=== PATIENT | male | born 1930 | race Caucasian/White ===

== ENCOUNTER 2016-07-06 18:07 | Inpatient (IN) | payer MEDICARE, MEDICAID ==
[~2016-07-06] VITALS: Ht 182.9 cm; Wt 95.6 kg
[2016-07-06] VITALS (209 sets, daily range): BP systolic 70; BP diastolic 50; PULSE 101; TEMP 97.3; O2SAT 85–100
[~2016-07-06 18:07] MED LIST changes: -00186-0370-20 IH; -ASPIRIN 81M81 MG/TA2 PO; -DULCOLAX S10 MG/SUPP RC; -FOLIC ACID 11 MG/TA1 PO; -GOOD SENSE400 MG/5 M PO; -HALLS MM; -HCTZ 25MG TAB25 MG PO; -IPRATROPIUM BROM3 M1 IH; -JANUVIA 100MG100 MG PO; -KLONOPIN 0.5MG0.5 MG PO; -LAC-HYDRIN121 TP; -MINERAL OIL 1 ML1 ML PO; -MIRALAX PA17 GM/Dose PO; -MUCINEX 60600 MG/TA1 PO; -MULTI-VITAMIN W1 TA2 PO; -NATURE'S BLEND100 M2 PO; -OCEAN NASAL SPR45 ML NS; -PRAVACHOL10 MG PO; -PRINIVIL2.5 MG PO; -PROSCAR 5MG5 MG PO; -SINEMET 25/101 UDTAB PO; -SYNTHROID0.112 MG/T PO; -TYLENOL 500MG500 MG PO; -[UNRECOGNIZED DRUG - OTHER]
[2016-07-06 20:24] LABS: HEMATOCRIT 40.2 % (42.0-52.0); HEMOGLOBIN 13.9 g/dl (13.5-18.0); MEAN CELL VOLUME 89 fl (80.0-100.0); MEAN CORPUSCULAR HEMOGLOBIN 31 pg (27.0-31.0); MEAN CORPUSCULAR HGB CONC 35 g/dl (33.0-37.0); MEAN PLATELET VOLUME 10.5 fl (7.4-10.4); PLATELET COUNT 207 K/mm3 (130-400); RED BLOOD COUNT 4.53 M/mm3 (4.20-5.60); REDCELL DISTRIBUTION WIDTH-CV 13.5 % (11.5-14.5)
[2016-07-06 20:27] LABS: ADD PATHOLOGY DIFF REVIEW NO; WHITE BLOOD COUNT 26.1 K/mm3 (4.8-10.8)
[2016-07-06 20:30] LABS: ADJUSTED CALCIUM 8.5 mg/dL (8.4-10.2); ALANINE AMINOTRANSFERASE 16 U/L (21-72); ALBUMIN 3.7 gm/dL (3.5-5.0); ALKALINE PHOSPHATASE 59 U/L (50-136); ANION GAP 12 mmol/L (7-16); BILIRUBIN,TOTAL 1.9 mg/dL (0.0-1.0); BLOOD UREA NITROGEN 19 mg/dL (9-20); CALCIUM 8.3 mg/dL (8.4-10.2); CARBON DIOXIDE 26 mmol/L (22-30); CHLORIDE 97 mmol/L (98-107); CREATININE, serum 1.27 mg/dL (0.66-1.25); POTASSIUM 4.2 mmol/L (3.4-5.0); SODIUM 135 mmol/L (137-145); TOTAL PROTEIN 6.8 gm/dL (6.4-8.2)
[2016-07-06 20:37] LABS: BAND 4 % (0-10); NEUTROPHILS 88 % (42.0-75.2); ROULEAUX 1+; TOTAL CELLS COUNTED 100
[2016-07-06 20:38] LABS: ANISOCYTOSIS 1+; STOMATOCYTE 1+
[2016-07-06 20:44] LABS: GLUCOSE 179 mg/dL (74-106); SALICYLATE < 1.0 mg/dL
[2016-07-06 20:46] LABS: ARTERIAL BLD GAS O2 SATURATION 92.1 % (92-100); ARTERIAL BLD GAS TCO2 CT 28.1; ARTERIAL BLOOD GAS HCO3 26.2 meq/L (22-26); ARTERIAL BLOOD GAS PHT 7.27 C (7.35-7.45); ARTERIAL BLOOD GAS PO2 72.3 mmHg (80-100); ARTERIAL BLOOD GAS PO2T 72.3 (80-100); ARTERIAL BLOOD GAS pH 7.27 (7.35-7.45); OXYHEMOGLOBIN 90.9 %
[2016-07-06 20:47] LABS: ALLEN TEST YES; ALLENS TEST RESULT PASS; ATS? YES
[2016-07-06 21:16] LABS: INR 1.2 (0.8-3.0); PROTHROMBIN TIME 13.6 SECONDS (9.7-12.8)
[2016-07-06 21:19] LABS: PARTIAL THROMBOPLASTIN TIME 38.9 SECONDS (26.0-37.0)
[2016-07-06 21:28] LABS: VENOUS BLOOD GAS BE -3.4 (-4-4)
[2016-07-06 21:29] LABS: VENOUS BLOOD GAS SAO2 74.5 % (60-80); VENOUS BLOOD GAS SITE CENTRAL LINE
[2016-07-07] VITALS (974 sets, daily range): BP systolic 95–118; BP diastolic 62–92; PULSE 91–105; TEMP 97.5–98.4; O2SAT 59–100
[2016-07-07] MEDS ORDERED: TYLENOL 500MG500 MG PO (00:04)
[2016-07-07] MEDS ORDERED: IPRATROPIUM BROM3 M1 IH (00:06)
[2016-07-07] MEDS ORDERED: LAC-HYDRIN121 TP (00:08)
[2016-07-07] MEDS ORDERED: ASPIRIN 81M81 MG/TA2 PO (00:08)
[2016-07-07] MEDS ORDERED: DULCOLAX S10 MG/SUPP RC (00:09)
[2016-07-07] MEDS ORDERED: KLONOPIN 0.5MG0.5 MG PO (00:11)
[2016-07-07] MEDS ORDERED: SINEMET 25/101 UDTAB PO (00:11)
[2016-07-07] MEDS ORDERED: [UNRECOGNIZED DRUG - OTHER] (00:14)
[2016-07-07 00:15] LABS: GRANULAR CAST >12 /lpf; HYALINE CAST >12 /lpf; PH 5 (5-8); SQUAMOUS EPITHELIAL 0-2 /hpf; URINE APPEARANCE Cloudy; URINE BACTERIA Rare /hpf; URINE BILIRUBIN Negative (NEGATIVE); URINE BLOOD 2+ (NEGATIVE); URINE COLOR Amber; URINE GLUCOSE 1+ (NEGATIVE); URINE KETONE Trace (NEGATIVE); URINE RBC >50 /hpf; URINE UROBILINOGEN Negative (NEGATIVE); URINE WBC 20-50 /hpf
[2016-07-07] MEDS ORDERED: FOLIC ACID 11 MG/TA1 PO (00:15)
[2016-07-07] MEDS ORDERED: PROSCAR 5MG5 MG PO (00:15)
[2016-07-07] MEDS ORDERED: MUCINEX 60600 MG/TA1 PO (00:16)
[2016-07-07] MEDS ORDERED: JANUVIA 100MG100 MG PO (00:17)
[2016-07-07] MEDS ORDERED: HCTZ 25MG TAB25 MG PO (00:17)
[2016-07-07] MEDS ORDERED: SYNTHROID0.112 MG/T PO (00:18)
[2016-07-07] MEDS ORDERED: PRINIVIL2.5 MG PO (00:19)
[2016-07-07] MEDS ORDERED: GOOD SENSE400 MG/5 M PO (00:20)
[2016-07-07] MEDS ORDERED: HALLS MM (00:21)
[2016-07-07] MEDS ORDERED: MINERAL OIL 1 ML1 ML PO (00:23)
[2016-07-07] MEDS ORDERED: MULTI-VITAMIN W1 TA2 PO (00:23)
[2016-07-07] MEDS ORDERED: MIRALAX PA17 GM/Dose PO (00:24)
[2016-07-07] MEDS ORDERED: PRAVACHOL10 MG PO (00:25)
[2016-07-07] MEDS ORDERED: OCEAN NASAL SPR45 ML NS (00:25)
[2016-07-07] MEDS ORDERED: 00186-0370-20 IH (00:26)
[2016-07-07] MEDS ORDERED: NATURE'S BLEND100 M2 PO (00:27)
[2016-07-07 01:09] LABS: VENOUS BLOOD GAS BE -5.4 (-4-4); VENOUS BLOOD GAS SAO2 69.8 % (60-80); VENOUS BLOOD GAS SITE CENTRAL LINE
[2016-07-07 01:26] LABS: ALBUMIN 3.7 gm/dL (3.5-5.0); MAGNESIUM 1.9 mg/dL (1.6-2.3); POTASSIUM 4.4 mmol/L (3.4-5.0)
[2016-07-07 01:42] LABS: TROPONIN-I 10.8 ng/mL (0.000-0.034)
[2016-07-07 05:21] LABS: INR 1.3 (0.8-3.0); PROTHROMBIN TIME 14.3 SECONDS (9.7-12.8)
[2016-07-07 06:14] LABS: ARTERIAL BLD GAS O2 SATURATION 98.9 % (92-100); ARTERIAL BLD GAS TCO2 CT 24.2; ARTERIAL BLOOD GAS BASE EXCESS -2.9 (-2-2); ARTERIAL BLOOD GAS HCO3 22.9 meq/L (22-26); ARTERIAL BLOOD GAS PHT 7.34 C (7.35-7.45); ARTERIAL BLOOD GAS pH 7.34 (7.35-7.45); OXYHEMOGLOBIN 97.9 %
[2016-07-07 06:17] LABS: ALLEN TEST YES; ALLENS TEST RESULT PASS; ARTERIAL BLOOD GAS PO2 212.9 mmHg (80-100); ARTERIAL BLOOD GAS PO2T 212.9 (80-100); ATS? YES
[2016-07-07 06:25] LABS: VENOUS BLOOD GAS SAO2 60.9 % (60-80); VENOUS BLOOD GAS SITE CENTRAL LINE
[2016-07-07 06:26] LABS: ADJUSTED CALCIUM 8.2 mg/dL (8.4-10.2); ALBUMIN 3.5 gm/dL (3.5-5.0); BILIRUBIN,TOTAL 1.4 mg/dL (0.0-1.0); CALCIUM 7.8 mg/dL (8.4-10.2); CREATININE, serum 1.12 mg/dL (0.66-1.25); POTASSIUM 4.4 mmol/L (3.4-5.0); TOTAL PROTEIN 6.5 gm/dL (6.4-8.2)
[2016-07-07 06:44] LABS: TROPONIN-I 13.5 ng/mL (0.000-0.034)
[2016-07-07 09:00] LABS: VENOUS BLOOD GAS BE -4.1 (-4-4); VENOUS BLOOD GAS SAO2 66.2 % (60-80)
[2016-07-07 09:01] LABS: VENOUS BLOOD GAS SITE CENTRAL LINE
[2016-07-07 10:07] LABS: HEMATOCRIT 39.5 % (42.0-52.0); HEMOGLOBIN 13.2 g/dl (13.5-18.0); MEAN CELL VOLUME 92 fl (80.0-100.0); MEAN CORPUSCULAR HEMOGLOBIN 31 pg (27.0-31.0); MEAN CORPUSCULAR HGB CONC 33 g/dl (33.0-37.0); MEAN PLATELET VOLUME 10.2 fl (7.4-10.4); PLATELET COUNT 182 K/mm3 (130-400); RED BLOOD COUNT 4.29 M/mm3 (4.20-5.60); REDCELL DISTRIBUTION WIDTH-CV 13.9 % (11.5-14.5); WHITE BLOOD COUNT 17.5 K/mm3 (4.8-10.8)
[2016-07-07 10:08] LABS: ADD PATHOLOGY DIFF REVIEW NO
[2016-07-07 10:30] LABS: BAND 2 % (0-10); NEUTROPHILS 94 % (42.0-75.2); TOTAL CELLS COUNTED 100
[2016-07-07 10:33] LABS: HYPOCHROMIA 1+; PLATELET ESTIMATE NORMAL (NORMAL)
[2016-07-07 12:02] LABS: ARTERIAL BLD GAS O2 SATURATION 98.3 % (92-100); ARTERIAL BLD GAS TCO2 CT 23.4; ARTERIAL BLOOD GAS BASE EXCESS -2.9 (-2-2); ARTERIAL BLOOD GAS HCO3 22.2 meq/L (22-26); ARTERIAL BLOOD GAS PHT 7.36 C (7.35-7.45); ARTERIAL BLOOD GAS pH 7.36 (7.35-7.45); OXYHEMOGLOBIN 97.4 %
[2016-07-07 12:03] LABS: ARTERIAL BLOOD GAS PO2 136.5 mmHg (80-100); ARTERIAL BLOOD GAS PO2T 136.5 (80-100); ATS? YES
[2016-07-07 13:46] LABS: VENOUS BLOOD GAS BE -0.1 (-4-4); VENOUS BLOOD GAS SAO2 62.2 % (60-80)
[2016-07-07 13:47] LABS: VENOUS BLOOD GAS SITE CENTRAL LINE
[2016-07-07 17:24] LABS: VENOUS BLOOD GAS SAO2 65.8 % (60-80)
[2016-07-07 17:25] LABS: VENOUS BLOOD GAS SITE CENTRAL LINE
[2016-07-07 21:14] LABS: VENOUS BLOOD GAS BE -1.1 (-4-4)
[2016-07-07 21:15] LABS: VENOUS BLOOD GAS SAO2 69.3 % (60-80); VENOUS BLOOD GAS SITE CENTRAL LINE
[2016-07-08] VITALS (680 sets, daily range): BP systolic 79–128; BP diastolic 58–92; PULSE 103–122; TEMP 07.3; O2SAT 56–100
[2016-07-08 01:07] LABS: VENOUS BLOOD GAS BE -3.4 (-4-4); VENOUS BLOOD GAS SAO2 62.8 % (60-80); VENOUS BLOOD GAS SITE CENTRAL LINE
[2016-07-08 03:13] LABS: HEMOGLOBIN 12.5 g/dl (13.5-18.0); MEAN CELL VOLUME 91 fl (80.0-100.0); MEAN CORPUSCULAR HEMOGLOBIN 31 pg (27.0-31.0); MEAN CORPUSCULAR HGB CONC 34 g/dl (33.0-37.0); MEAN PLATELET VOLUME 10.8 fl (7.4-10.4); PLATELET COUNT 176 K/mm3 (130-400); RED BLOOD COUNT 4.02 M/mm3 (4.20-5.60); REDCELL DISTRIBUTION WIDTH-CV 13.7 % (11.5-14.5); WHITE BLOOD COUNT 16.2 K/mm3 (4.8-10.8)
[2016-07-08 03:19] LABS: INR 1.4 (0.8-3.0); PROTHROMBIN TIME 15.1 SECONDS (9.7-12.8)
[2016-07-08 03:21] LABS: ADJUSTED CALCIUM 8.3 mg/dL (8.4-10.2); ALBUMIN 3.2 gm/dL (3.5-5.0); CALCIUM 7.7 mg/dL (8.4-10.2); CREATININE, serum 0.96 mg/dL (0.66-1.25); TOTAL PROTEIN 6.1 gm/dL (6.4-8.2)
[2016-07-08 03:24] LABS: HEMATOCRIT 36.7 % (42.0-52.0)
[2016-07-08 04:57] LABS: VENOUS BLOOD GAS BE -7.5 (-4-4); VENOUS BLOOD GAS SAO2 60.4 % (60-80)
[2016-07-08 04:59] LABS: VENOUS BLOOD GAS SITE CENTRAL LINE
[2016-07-08 05:17] LABS: ARTERIAL BLOOD GAS BASE EXCESS -6.6 (-2-2); ARTERIAL BLOOD GAS HCO3 19.8 meq/L (22-26); ARTERIAL BLOOD GAS PO2 86.5 mmHg (80-100); ARTERIAL BLOOD GAS pH 7.28 (7.35-7.45)
[2016-07-08 05:18] LABS: ALLEN TEST YES; ALLENS TEST RESULT PASS; ARTERIAL BLD GAS TCO2 CT 21.2; ATS? YES
[2016-07-08 07:16] LABS: ARTERIAL BLD GAS O2 SATURATION 94.1 % (92-100); ARTERIAL BLD GAS TCO2 CT 19.8; ARTERIAL BLOOD GAS HCO3 18.5 meq/L (22-26); ARTERIAL BLOOD GAS PHT 7.27 C (7.35-7.45); ARTERIAL BLOOD GAS pH 7.27 (7.35-7.45); OXYHEMOGLOBIN 93.2 %
[2016-07-08 07:18] LABS: ATS? YES
[2016-07-08 08:15] LABS: MAGNESIUM 2.7 mg/dL (1.6-2.3); POTASSIUM 3.8 mmol/L (3.4-5.0)
[2016-07-08 09:13] LABS: VENOUS BLOOD GAS BE -8.6 (-4-4); VENOUS BLOOD GAS SAO2 65.2 % (60-80)
[2016-07-08 09:14] LABS: VENOUS BLOOD GAS SITE CENTRAL LINE
== END 2016-07-08 15:46 | disposition expired | DRG 871 ==
LOC: ICU 18:07
PROVIDERS: Anesthesiology Critical Care Medicine; Internal Medicine; Internal Medicine Pulmonary Disease; Nurse Practitioner Family
PROC: 02HV33Z Insertion of Infusion Device into Superior Vena Cava, Percutaneous Approach (ICD-10-PCS; principal; 2016-07-06)
DX: A41.9 Sepsis, unspecified organism (principal); R65.21 Severe sepsis with septic shock; J18.9 Pneumonia, unspecified organism; I21.4 Non-ST elevation (NSTEMI) myocardial infarction; Z51.5 Encounter for palliative care; Z66 Do not resuscitate; J96.01 Acute respiratory failure with hypoxia; I50.23 Acute on chronic systolic (congestive) heart failure; E87.4 Mixed disorder of acid-base balance; E11.9 Type 2 diabetes mellitus without complications; G20 Parkinson's disease; I25.10 Atherosclerotic heart disease of native coronary artery without angina pectoris; Z87.891 Personal history of nicotine dependence; I11.0 Hypertensive heart disease with heart failure; I25.5 Ischemic cardiomyopathy; I35.0 Nonrheumatic aortic (valve) stenosis
CPT/HCPCS: 99223-AI; 99233-AI; 99239; A4217; A4315; C1751; J0280; J0282; J0610; J0692; J1644; J1720; J1815; J1956; J2060; J2270; J2920; J3010; J3370; J3475; J7030; J7040; J7050; J7060; Q9967

== ENCOUNTER → 2016-07-06 | Outpatient (REF) ==
[~2016-07-06] MED LIST: 00186-0370-20 IH; ACTIFED COLD &1 TA1 PO; AMITRIPTYLINE25 MG PO; ASPIRIN 81M81 MG/TA2 PO; ASPIRIN E.C. 8181 MG PO; B-1100 MG PO; DULCOLAX S10 MG/SUPP RC; DULCOLAX10 MG RC; FOLIC ACID 11 MG/TA1 PO; FOLIC ACID1 MG PO; GOOD SENSE400 MG/5 M PO; HALLS MM; HALLS5 MG MM; HCTZ 25MG TAB25 MG PO; IPRATROPIUM BROM3 M1 IH; JANUVIA 100MG100 MG PO; KLONOPIN 0.5MG0.5 MG PO; LAC-HYDRIN121 TP; LAMICTAL25 MG PO; LEVSIN0.125 M1 SL; MAALOX PLUS 3030 ML PO; MILK OF MA400 MG/51 PO; MINERAL OIL 1 ML1 ML PO; MINERAL OIL TP; MIRALAX PA17 GM/Dose PO; MIRALAX17 GM/DOSE PO; MUCINEX 60600 MG/TA1 PO; MULTI VITAMINS1 TAB PO; MULTI-VITAMIN W1 TA2 PO; NATURE'S BLEND100 M2 PO; OCEAN NASAL SPR45 ML NS; PEPCID 20MG TAB20 MG PO; PRAVACHOL10 MG PO; PRINIVIL2.5 MG PO; PROSCAR 5MG5 MG PO; PROSCAR5 MG PO; SINEMET 25-1001 TAB PO; SINEMET 25/101 UDTAB PO; SYNTHROID0.112 MG/T PO; SYNTHROID0.125 MG PO; TYLENOL 500MG500 MG PO; XANAX .25M0.25 MG/TA PO; XOPENEX 3 ML3 M1 IH; ZOFRAN8 MG PO; [UNRECOGNIZED DRUG - OTHER]
== END ==
LOC: ZLAB.WCH 19:17
DX: Z01.89 Encounter for other specified special examinations (principal)
CPT/HCPCS: Q9967